=== PATIENT | female | born 1950 | race Caucasian/White ===

== ENCOUNTER 2024-10-13 16:03 | Emergency (ER) | payer MEDICARE, BC ==
[~2024-10-13] VITALS: Ht 154.9 cm; Wt 113.6 kg
[2024-10-13 16:55] LABS: BASOPHILS % (AUTO) 0.5 % (0-1); EOSINOPHILS # (AUTO) 0.2 X10'3 (0-0.9); EOSINOPHILS % (AUTO) 2.4 % (0-6); HEMATOCRIT 38.8 % (35.0-45.0); HEMOGLOBIN 12.6 g/dl (12.0-16.0); LYMPHOCYTES # (AUTO) 1.1 X10'3 (1.1-4.8); LYMPHOCYTES % (AUTO) 13.5 % (21-51); MEAN CORPUSCULAR HGB CONC 32.5 g/dL (33.0-36.5); MEAN CORPUSCULAR VOLUME 86.1 FL (78-98); MEAN PLATELET VOLUME 10.4 FL (7.4-10.4); MONOCYTES # (AUTO) 0.5 X10'3 (0-0.9); MONOCYTES % (AUTO) 5.8 % (2-12); NEUTROPHILS # (AUTO) 6.1 X10'3 (1.8-7.7); NEUTROPHILS % (AUTO) 77.8 % (42-75); PLATELET COUNT 225 X10'3 (140-440); RED BLOOD COUNT 4.51 X10'6 (4.20-5.60); RED CELL DISTRIBUTION WIDTH 15.5 % (11.5-14.5); WHITE BLOOD COUNT 7.8 X10'3 (4.5-11.0)
[2024-10-13 17:02] LABS: ALANINE AMINOTRANSFERASE 27 U/L (12-78); ALBUMIN/GLOBULIN RATIO 0.5 (1.1-1.5); ALKALINE PHOSPHATASE 183 IU/L (46-116); ANION GAP 4 (8-16); ASPARTATE AMINO TRANSFERASE 29 U/L (10-37); BILIRUBIN,TOTAL 0.5 MG/DL (0.1-1.0); BLOOD UREA NITROGEN 54 MG/DL (7-18); BUN/CREATININE RATIO 37.2 (10.0-20.0); CALCIUM 9.6 MG/DL (8.5-10.1); CHLORIDE 93 MMOL/L (99-107); CREATININE 1.45 MG/DL (0.40-0.90); GLUCOSE 244 MG/DL (70-104); POTASSIUM 3.9 MMOL/L (3.5-5.1); SODIUM 131 MMOL/L (135-145); TOTAL CARBON DIOXIDE 34.2 MMOL/L (24-32); TOTAL PROTEIN 8.8 G/DL (6.4-8.2); eCRCL 26 ML/MIN; eGFR 35 ML/MIN
[2024-10-13 17:27] LABS: BILIRUBIN,URINE NEGATIVE (Neg); CLARITY,URINE CLEAR (Clear); COLOR,URINE STRAW (Yellow); GLUCOSE, URINE >=1000 mg/dl (Neg); KETONES,URINE NEGATIVE (Neg); LEUKOCYTE ESTERASE ,URINE NEGATIVE (Neg); NITRITES, URINE NEGATIVE (Neg); OCCULT BLOOD,URINE SMALL (Neg); PROTEIN,URINE TRACE mg/dl (Neg); UROBILINOGEN,URINE 0.2 E.U/dL (0.2-1.0)
[2024-10-13 17:33] LABS: UA COLLECTION TYPE CLN CATCH MIDSTREAM
[2024-10-13 17:36] LABS: BACTERIA,URINE NONE SEEN /HPF (Neg); MUCUS STRANDS NONE SEEN /LPF (Neg); SQUAMOUS EPITHELIAL CELL,UR FEW /LPF (FEW); WBC,URINE 0-4 /HPF (0-4)
[2024-10-13] MEDS: TETanus/Pertussis (Acell)/Diphther VAC/PF (Tdap-Adult) 0.5ml syringe IMVAC ONE (19:19)
[2024-10-13] MEDS: tetanus & diphtheria toxoid (Td) vaccine 0.5ml IMVAC ONE (19:21)
[2024-10-13 19:25] VITALS: BP 135/84; PULSE 74; RESP 16; TEMP 97.7; O2SAT 95
== END 2024-10-13 19:26 | disposition home or self-care (01) ==
LOC: ER 16:03
DX: S41.111A Laceration without foreign body of right upper arm, initial encounter (principal); W19.XXXA Unspecified fall, initial encounter; Y93.89 Activity, other specified; Y92.89 Other specified places as the place of occurrence of the external cause; Y99.8 Other external cause status
CPT/HCPCS: 36415; 80053; 81001; 85025; 90715; 99283; G0008; 90471

== ENCOUNTER 2024-11-21 12:22 | Inpatient (IN) | payer MEDICARE, BC ==
[~2024-11-21] VITALS: Ht 154.9 cm; Wt 113.9 kg
[2024-11-21 12:47] LABS: BASOPHILS # (AUTO) 0.1 X10'3 (0-0.2); BASOPHILS % (AUTO) 0.7 % (0-1); EOSINOPHILS # (AUTO) 0.2 X10'3 (0-0.9); HEMATOCRIT 36.2 % (35.0-45.0); HEMOGLOBIN 11.8 g/dl (12.0-16.0); LYMPHOCYTES # (AUTO) 1.3 X10'3 (1.1-4.8); LYMPHOCYTES % (AUTO) 16.3 % (21-51); MEAN CORPUSCULAR HEMOGLOBIN 28.1 PG (27.0-31.0); MEAN CORPUSCULAR HGB CONC 32.6 g/dL (33.0-36.5); MEAN CORPUSCULAR VOLUME 86.1 FL (78-98); MEAN PLATELET VOLUME 9.7 FL (7.4-10.4); MONOCYTES # (AUTO) 0.6 X10'3 (0-0.9); MONOCYTES % (AUTO) 7.5 % (2-12); NEUTROPHILS # (AUTO) 5.8 X10'3 (1.8-7.7); NEUTROPHILS % (AUTO) 72.5 % (42-75); PLATELET COUNT 199 X10'3 (140-440); RED CELL DISTRIBUTION WIDTH 16.6 % (11.5-14.5); WHITE BLOOD COUNT 8.1 X10'3 (4.5-11.0)
[2024-11-21 13:03] LABS: ALANINE AMINOTRANSFERASE 40 U/L (12-78); ALBUMIN 2.6 G/DL (3.4-5.0); ALBUMIN/GLOBULIN RATIO 0.5 (1.1-1.5); ALKALINE PHOSPHATASE 200 IU/L (46-116); ANION GAP 3 (8-16); ASPARTATE AMINO TRANSFERASE 46 U/L (10-37); BILIRUBIN,TOTAL 0.5 MG/DL (0.1-1.0); BLOOD UREA NITROGEN 59 MG/DL (7-18); CALCIUM 8.9 MG/DL (8.5-10.1); CHLORIDE 95 MMOL/L (99-107); CREATININE 1.34 MG/DL (0.40-0.90); GLUCOSE 126 MG/DL (70-104); POTASSIUM 3.4 MMOL/L (3.5-5.1); SODIUM 135 MMOL/L (135-145); TOTAL CARBON DIOXIDE 36.8 MMOL/L (24-32); TOTAL PROTEIN 8.2 G/DL (6.4-8.2); eCRCL 28 ML/MIN; eGFR 39 ML/MIN
[2024-11-21 13:11] LABS: PRO BRAIN NATRIURETIC PEPTIDE 2067 PG/ML (0-125)
[2024-11-21 15:28] LABS: MAGNESIUM 1.7 MG/DL (1.5-2.4)
[2024-11-21] MEDS: CefTRIAXone/D5W-Rocephin 1gm 50 ML IV ONE (15:52)
[2024-11-21] MEDS ORDERED: potassium Cl 20 mEq SR tablet PO PRN (16:25)
[2024-11-21] MEDS ORDERED: morphine 2 MG/ML inj. syringe IV PRN (16:25)
[2024-11-21] MEDS ORDERED: potassium Cl 40MEQ/1/2NS 520ml 520 ML IV PRN (16:25)
[2024-11-21] MEDS ORDERED: magnesium Cl slow-release 64mg tablet PO PRN (16:25)
[2024-11-21] MEDS ORDERED: magnesium sulf-water 4G/100mL 100 ML IV PRN (16:25)
[2024-11-21] MEDS ORDERED: magnesium sulf-water 2g/50mL 50 ML IV PRN (16:25)
[2024-11-21] MEDS ORDERED: ondansetron/PF 4mg/2ml inj IV PRN (16:25)
[2024-11-21] MEDS ORDERED: acetaminophen 325mg tablet PO PRN ×2 (16:25)
[2024-11-21] MEDS ORDERED: dextrose 50%-water 50ml dispensing syringe IV PRN ×2 (16:30)
[2024-11-21] MEDS ORDERED: glucagon, human recombinant 1mg kit SUBCUT PRN (16:30)
[2024-11-21] MEDS ORDERED: DEXTROSE 15 GM of carb/4 tabs (each vial/BOTTLE has 4 tablets) PO PRN ×2 (16:30)
[2024-11-21] MEDS: doxycycline inj 100 MG in normal saline 100ml IV soln 100 ML IV SCH (17:45)
[2024-11-21] MEDS: normal saline 1000ml 1,000 ML IV SCH (17:45)
[2024-11-21] MEDS ORDERED: ROSU40TA PO (17:56)
[2024-11-21] MEDS ORDERED: METO5TAB7 PO (17:56)
[2024-11-21] MEDS ORDERED: METO-384 (17:56)
[2024-11-21] MEDS ORDERED: FURO40TA4 PO (17:56)
[2024-11-21] MEDS ORDERED: LEVO75TA7 PO (17:56)
[2024-11-21] MEDS ORDERED: DULO30CA52 PO (17:56)
[2024-11-21] MEDS ORDERED: ROPI1TAB47 PO (17:56)
[2024-11-21] MEDS ORDERED: RIVA15TA PO (17:56)
[2024-11-21] MEDS ORDERED: PANT40TA54 PO (17:56)
[2024-11-21] MEDS ORDERED: CLON1TAB2 PO (17:57)
[2024-11-21] MEDS ORDERED: DAPA5TAB PO (17:58)
[2024-11-21] MEDS: INSULIN LISPRO 100 UNIT/ML INSULN.PEN MULTI-DOSE SQ SCH (19:01)
[2024-11-21 19:12] LABS: THYROID STIMULATING HORMONE 3.48 ulU/ml (0.34-4.50)
[2024-11-21] MEDS ORDERED: heparin, porcine 5000 units/ml vial SQ SCH (20:00)
[2024-11-21] MEDS: duloxetine 30mg CAPSULE.DR PO SCH (20:24)
[2024-11-21] MEDS: atorvastatin 20mg tablet PO SCH (20:24)
[2024-11-21] MEDS: levoTHYROXINE 75mcg tablet PO SCH (20:24)
[2024-11-21] MEDS: pantoprazole 40mg Tablet.DR PO SCH (20:24)
[2024-11-21] MEDS: ROPINIRole 1mg tablet PO SCH (20:25)
[2024-11-21] MEDS: rivaroxaban 15mg tablet PO SCH (20:34)
[2024-11-21] MEDS: furosemide 40mg tablet PO SCH (20:34)
[2024-11-21] MEDS: metoprolol succinate 25mg (24-HOUR) SR. Tablet PO SCH (20:41)
[2024-11-21 22:00] VITALS: BP 149/32; PULSE 71; RESP 19; TEMP 97.6; O2SAT 95
[2024-11-22 05:28] LABS: BASOPHILS % (AUTO) 0.4 % (0-1); EOSINOPHILS # (AUTO) 0.3 X10'3 (0-0.9); EOSINOPHILS % (AUTO) 3.2 % (0-6); HEMOGLOBIN 10.8 g/dl (12.0-16.0); LYMPHOCYTES # (AUTO) 1.2 X10'3 (1.1-4.8); LYMPHOCYTES % (AUTO) 13.8 % (21-51); MEAN CORPUSCULAR HEMOGLOBIN 27.5 PG (27.0-31.0); MEAN CORPUSCULAR HGB CONC 31.8 g/dL (33.0-36.5); MEAN CORPUSCULAR VOLUME 86.5 FL (78-98); MEAN PLATELET VOLUME 10.3 FL (7.4-10.4); MONOCYTES # (AUTO) 0.8 X10'3 (0-0.9); MONOCYTES % (AUTO) 8.6 % (2-12); NEUTROPHILS # (AUTO) 6.5 X10'3 (1.8-7.7); PLATELET COUNT 185 X10'3 (140-440); RED BLOOD COUNT 3.93 X10'6 (4.20-5.60); RED CELL DISTRIBUTION WIDTH 16.5 % (11.5-14.5); WHITE BLOOD COUNT 8.8 X10'3 (4.5-11.0)
[2024-11-22 05:47] LABS: ALBUMIN 2.3 G/DL (3.4-5.0); BLOOD UREA NITROGEN 58 MG/DL (7-18); CALCIUM 8.8 MG/DL (8.5-10.1); CREATININE 1.38 MG/DL (0.40-0.90); GLUCOSE 160 MG/DL (70-104); SODIUM 135 MMOL/L (135-145); TOTAL CARBON DIOXIDE 35.1 MMOL/L (24-32); eCRCL 27 ML/MIN; eGFR 37 ML/MIN
[2024-11-22 06:08] LABS: ANION GAP 5 (8-16); CHLORIDE 95 MMOL/L (99-107); POTASSIUM 3.2 MMOL/L (3.5-5.1)
[2024-11-22 06:39] VITALS: BP 110/50; PULSE 68; RESP 16; TEMP 97.8; O2SAT 96
[2024-11-22 07:48] VITALS: RESP 16; O2SAT 96
[2024-11-22] MEDS: lactose-reduced food (Ensure Enlive) - 237ml bottle PO SCH (08:00)
[2024-11-22] MEDS: potassium Cl 20 mEq SR tablet PO PRN (09:30)
[2024-11-22] MEDS: normal saline 1000ml 1,000 ML IV SCH (09:31)
[2024-11-22 11:21] VITALS: BP 111/50; PULSE 69; RESP 18; TEMP 97; O2SAT 98
[2024-11-22 18:00] VITALS: BP 116/50; PULSE 65; RESP 17; TEMP 98.2; O2SAT 96
[2024-11-22 22:00] VITALS: BP 147/51; PULSE 69; RESP 15; TEMP 98; O2SAT 97
[2024-11-22 22:08] VITALS: RESP 17; O2SAT 96
[2024-11-23 05:16] LABS: BASOPHILS % (AUTO) 0.5 % (0-1); EOSINOPHILS # (AUTO) 0.3 X10'3 (0-0.9); EOSINOPHILS % (AUTO) 3.5 % (0-6); HEMATOCRIT 32.1 % (35.0-45.0); HEMOGLOBIN 10.5 g/dl (12.0-16.0); LYMPHOCYTES # (AUTO) 1.3 X10'3 (1.1-4.8); LYMPHOCYTES % (AUTO) 16.8 % (21-51); MEAN CORPUSCULAR HGB CONC 32.6 g/dL (33.0-36.5); MEAN CORPUSCULAR VOLUME 85.9 FL (78-98); MEAN PLATELET VOLUME 10.2 FL (7.4-10.4); MONOCYTES # (AUTO) 0.5 X10'3 (0-0.9); MONOCYTES % (AUTO) 6.9 % (2-12); NEUTROPHILS # (AUTO) 5.6 X10'3 (1.8-7.7); NEUTROPHILS % (AUTO) 72.3 % (42-75); PLATELET COUNT 177 X10'3 (140-440); RED BLOOD COUNT 3.74 X10'6 (4.20-5.60); RED CELL DISTRIBUTION WIDTH 16.9 % (11.5-14.5); WHITE BLOOD COUNT 7.8 X10'3 (4.5-11.0)
[2024-11-23 05:30] LABS: ALBUMIN 2.3 G/DL (3.4-5.0); ANION GAP 3 (8-16); BLOOD UREA NITROGEN 59 MG/DL (7-18); BUN/CREATININE RATIO 43.4 (10.0-20.0); CALCIUM 8.6 MG/DL (8.5-10.1); CHLORIDE 97 MMOL/L (99-107); CREATININE 1.36 MG/DL (0.40-0.90); GLUCOSE 176 MG/DL (70-104); POTASSIUM 3.5 MMOL/L (3.5-5.1); SODIUM 136 MMOL/L (135-145); TOTAL CARBON DIOXIDE 35.8 MMOL/L (24-32); eCRCL 27 ML/MIN; eGFR 38 ML/MIN
[2024-11-23 06:00] VITALS: BP 117/48; PULSE 71; RESP 17; TEMP 97.9; O2SAT 100
[2024-11-23] MEDS ORDERED: metolazone 2.5mg tablet PO SCH (08:00)
[2024-11-23 10:00] VITALS: BP 129/67; PULSE 65; RESP 16; TEMP 97.1; O2SAT 98
[2024-11-23] MEDS: duloxetine 30mg CAPSULE.DR PO SCH (10:02)
[2024-11-23 10:16] VITALS: RESP 16; O2SAT 100
[2024-11-23 18:00] VITALS: BP 149/54; PULSE 90; RESP 18; TEMP 97.2; O2SAT 95
[2024-11-23] MEDS: ROPINIRole 1mg tablet PO SCH (20:41)
[2024-11-23 22:00] VITALS: BP 145/47; PULSE 69; RESP 22; TEMP 97.8; O2SAT 97
[2024-11-24] MEDS: HYDROcodone/acetaminophen 5mg/325mg tablet PO PRN (03:19)
[2024-11-24 06:00] VITALS: BP 135/67; PULSE 68; RESP 18; TEMP 98.3; O2SAT 98
[2024-11-24 06:09] LABS: ALBUMIN 2.6 G/DL (3.4-5.0); ANION GAP 3 (8-16); BLOOD UREA NITROGEN 50 MG/DL (7-18); BUN/CREATININE RATIO 43.1 (10.0-20.0); CALCIUM 9.3 MG/DL (8.5-10.1); CHLORIDE 98 MMOL/L (99-107); CREATININE 1.16 MG/DL (0.40-0.90); GLUCOSE 229 MG/DL (70-104); POTASSIUM 4.2 MMOL/L (3.5-5.1); SODIUM 136 MMOL/L (135-145); TOTAL CARBON DIOXIDE 34.7 MMOL/L (24-32); eCRCL 32 ML/MIN; eGFR 46 ML/MIN
[2024-11-24 06:18] LABS: BASOPHILS # (AUTO) 0.1 X10'3 (0-0.2); BASOPHILS % (AUTO) 0.6 % (0-1); EOSINOPHILS # (AUTO) 0.2 X10'3 (0-0.9); EOSINOPHILS % (AUTO) 2.3 % (0-6); HEMATOCRIT 35.6 % (35.0-45.0); HEMOGLOBIN 11.5 g/dl (12.0-16.0); LYMPHOCYTES # (AUTO) 1.2 X10'3 (1.1-4.8); LYMPHOCYTES % (AUTO) 11.2 % (21-51); MEAN CORPUSCULAR HEMOGLOBIN 27.9 PG (27.0-31.0); MEAN CORPUSCULAR HGB CONC 32.3 g/dL (33.0-36.5); MEAN CORPUSCULAR VOLUME 86.5 FL (78-98); MEAN PLATELET VOLUME 10.5 FL (7.4-10.4); MONOCYTES # (AUTO) 0.6 X10'3 (0-0.9); MONOCYTES % (AUTO) 5.6 % (2-12); NEUTROPHILS # (AUTO) 8.4 X10'3 (1.8-7.7); NEUTROPHILS % (AUTO) 80.3 % (42-75); PLATELET COUNT 213 X10'3 (140-440); RED BLOOD COUNT 4.12 X10'6 (4.20-5.60); RED CELL DISTRIBUTION WIDTH 16.9 % (11.5-14.5); WHITE BLOOD COUNT 10.4 X10'3 (4.5-11.0)
[2024-11-24] MEDS ORDERED: AMOX-580 PO (07:56)
[2024-11-24 08:00] VITALS: RESP 20; O2SAT 95
[2024-11-24] MEDS: furosemide 40mg/4ml inj IV SCH (08:09)
[2024-11-24 10:00] VITALS: BP 119/56; PULSE 71; RESP 20; TEMP 98.1; O2SAT 95
[2024-11-24 12:22] VITALS: RESP 17
[2024-11-24 12:54] LABS: HEMOGLOBIN A1C 8.5 % (4.5-6.2)
[2024-11-24] MEDS ORDERED: FURO40TA4 PO (14:04)
== END 2024-11-24 16:39 | disposition home or self-care (01) | DRG 602 ==
LOC: ER 12:23 → ED HOLD 16:29 → SUR 3N 21:00
PROVIDERS: ADMIT Internal Medicine; ATTEND Internal Medicine
DX: L03.115 Cellulitis of right lower limb (principal); I50.33 Acute on chronic diastolic (congestive) heart failure; I13.0 Hypertensive heart and chronic kidney disease with heart failure and stage 1 through stage 4 chronic kidney disease, or unspecified chronic kidney disease; E87.3 Alkalosis; E44.0 Moderate protein-calorie malnutrition; Z68.42 Body mass index [BMI] 45.0-49.9, adult; L03.116 Cellulitis of left lower limb; I27.20 Pulmonary hypertension, unspecified; N18.9 Chronic kidney disease, unspecified; J44.9 Chronic obstructive pulmonary disease, unspecified; E11.22 Type 2 diabetes mellitus with diabetic chronic kidney disease; G89.29 Other chronic pain; M54.9 Dorsalgia, unspecified; K21.9 Gastro-esophageal reflux disease without esophagitis; Z66 Do not resuscitate; B96.89 Other specified bacterial agents as the cause of diseases classified elsewhere; F32.A Depression, unspecified; F41.9 Anxiety disorder, unspecified; D63.8 Anemia in other chronic diseases classified elsewhere; M16.0 Bilateral primary osteoarthritis of hip; M19.09 Primary osteoarthritis, other specified site; M17.0 Bilateral primary osteoarthritis of knee; Z79.899 Other long term (current) drug therapy; Z88.8 Allergy status to other drugs, medicaments and biological substances; Z95.0 Presence of cardiac pacemaker; Z95.2 Presence of prosthetic heart valve
CPT/HCPCS: 36415; 71045; 80048; 80053; 82948; 83036; 83605; 83735; 83880; 84145; 84443; 84484; 85025; 87040; 87077; 87081; 87186; 93005; 96365; 96367; 96372; 97161; 97530; 99285; A4615; G0378; J0696; J1815; J1940; J3490; J7030

== ENCOUNTER 2024-12-13 18:09 | Inpatient (IN) | payer MEDICARE, BC ==
[~2024-12-13] VITALS: Ht 165.1 cm; Wt 109.1 kg
[~2024-12-13 18:09] MED LIST: CLON1TAB2 PO; DAPA5TAB PO; DULO30CA52 PO; FURO40TA4 PO; LEVO75TA7 PO; METO-384 PO; METO5TAB7 PO; PANT40TA54 PO; RIVA15TA PO; ROPI1TAB47 PO; ROSU40TA PO
[2024-12-13 19:37] LABS: BASOPHILS # (AUTO) 0.1 X10'3 (0-0.2); BASOPHILS % (AUTO) 0.7 % (0-1); EOSINOPHILS # (AUTO) 0.1 X10'3 (0-0.9); EOSINOPHILS % (AUTO) 1.2 % (0-6); HEMATOCRIT 40.9 % (35.0-45.0); HEMOGLOBIN 13.5 g/dl (12.0-16.0); LYMPHOCYTES # (AUTO) 1.6 X10'3 (1.1-4.8); LYMPHOCYTES % (AUTO) 19.7 % (21-51); MEAN CORPUSCULAR HEMOGLOBIN 27.9 PG (27.0-31.0); MEAN CORPUSCULAR HGB CONC 33.1 g/dL (33.0-36.5); MEAN CORPUSCULAR VOLUME 84.3 FL (78-98); MEAN PLATELET VOLUME 10.6 FL (7.4-10.4); MONOCYTES # (AUTO) 0.6 X10'3 (0-0.9); MONOCYTES % (AUTO) 7.8 % (2-12); NEUTROPHILS # (AUTO) 5.9 X10'3 (1.8-7.7); NEUTROPHILS % (AUTO) 70.6 % (42-75); PLATELET COUNT 227 X10'3 (140-440); RED BLOOD COUNT 4.85 X10'6 (4.20-5.60); RED CELL DISTRIBUTION WIDTH 16.7 % (11.5-14.5); WHITE BLOOD COUNT 8.3 X10'3 (4.5-11.0)
[2024-12-13 20:00] LABS: ALANINE AMINOTRANSFERASE 78 U/L (12-78); ALBUMIN 2.9 G/DL (3.4-5.0); ALBUMIN/GLOBULIN RATIO 0.5 (1.1-1.5); ALKALINE PHOSPHATASE 213 IU/L (46-116); ANION GAP 3 (8-16); ASPARTATE AMINO TRANSFERASE 82 U/L (10-37); BILIRUBIN,TOTAL 0.7 MG/DL (0.1-1.0); BLOOD UREA NITROGEN 84 MG/DL (7-18); BUN/CREATININE RATIO 38.4 (10.0-20.0); CALCIUM 9.3 MG/DL (8.5-10.1); CHLORIDE 84 MMOL/L (99-107); CREATININE 2.19 MG/DL (0.40-0.90); GLUCOSE 349 MG/DL (70-104); MAGNESIUM 1.7 MG/DL (1.5-2.4); PRO BRAIN NATRIURETIC PEPTIDE 2173 PG/ML (0-125); SODIUM 127 MMOL/L (135-145); TOTAL CARBON DIOXIDE 39.7 MMOL/L (24-32); TOTAL PROTEIN 8.4 G/DL (6.4-8.2); eGFR 22 ML/MIN
[2024-12-13 20:27] LABS: POTASSIUM 2.3 MMOL/L (3.5-5.1)
[2024-12-13] MEDS: ipratropium/albuterol 3ml nebule NEB ONE (20:33)
[2024-12-13 20:35] LABS: BILIRUBIN,URINE NEGATIVE (Neg); CLARITY,URINE CLEAR (Clear); COLOR,URINE YELLOW (Yellow); GLUCOSE, URINE >=1000 mg/dl (Neg); KETONES,URINE NEGATIVE (Neg); LEUKOCYTE ESTERASE ,URINE NEGATIVE (Neg); NITRITES, URINE NEGATIVE (Neg); OCCULT BLOOD,URINE NEGATIVE (Neg); PROTEIN,URINE NEGATIVE (Neg); UROBILINOGEN,URINE 0.2 E.U/dL (0.2-1.0)
[2024-12-13] MEDS ORDERED: magnesium sulf-water 2g/50mL 50 ML IV PRN (20:35)
[2024-12-13] MEDS ORDERED: acetaminophen 325mg tablet PO PRN (20:35)
[2024-12-13] MEDS ORDERED: DEXTROSE 15 GM of carb/4 tabs (each vial/BOTTLE has 4 tablets) PO PRN ×2 (20:35)
[2024-12-13] MEDS ORDERED: mag hydrox/Alum hydrox/simeth 30ml oral suspension PO PRN (20:35)
[2024-12-13] MEDS ORDERED: ipratropium/albuterol 3ml nebule NEB PRN (20:35)
[2024-12-13] MEDS ORDERED: bisacodyl 10mg suppository rectal RC PRN (20:35)
[2024-12-13] MEDS ORDERED: magnesium Cl slow-release 64mg tablet PO PRN (20:35)
[2024-12-13] MEDS ORDERED: HYDROcodone/acetaminophen 5mg/325mg tablet PO PRN (20:35)
[2024-12-13] MEDS ORDERED: glucagon, human recombinant 1mg kit SUBCUT PRN (20:35)
[2024-12-13] MEDS ORDERED: magnesium hydroxide 30ml (MOM) UD suspension PO PRN (20:35)
[2024-12-13] MEDS ORDERED: magnesium sulf-water 4G/100mL 100 ML IV PRN (20:35)
[2024-12-13] MEDS ORDERED: HYDROmorphone inj. 0.5 MG/0.5 ML DISP.SYRIN IV PRN (20:35)
[2024-12-13] MEDS ORDERED: potassium Cl 40MEQ/1/2NS 520ml 520 ML IV PRN (20:35)
[2024-12-13] MEDS ORDERED: dextrose 50%-water 50ml dispensing syringe IV PRN ×2 (20:35)
[2024-12-13] MEDS ORDERED: ondansetron/PF 4mg/2ml inj IV PRN (20:35)
[2024-12-13] MEDS ORDERED: morphine 2 MG/ML inj. syringe IV PRN (20:35)
[2024-12-13] MEDS ORDERED: potassium Cl 20 mEq SR tablet PO PRN (20:35)
[2024-12-13 20:36] VITALS: PULSE 60; RESP 16; O2SAT 87
[2024-12-13 20:41] VITALS: PULSE 60; RESP 16; O2SAT 95
[2024-12-13 20:47] LABS: UA COLLECTION TYPE CLN CATCH MIDSTREAM
[2024-12-13 20:48] LABS: BACTERIA,URINE 1+ /HPF (Neg); RBC,URINE NONE SEEN /HPF (0-2); SQUAMOUS EPITHELIAL CELL,UR MANY /LPF (FEW); WBC,URINE 0-4 /HPF (0-4)
[2024-12-13] MEDS: potassium Cl 20 mEq SR tablet PO STA (20:53)
[2024-12-13] MEDS: magnesium sulf-water 2g/50mL 50 ML IV ONE (20:54)
[2024-12-13] MEDS: potassium Cl 40MEQ/1/2NS 520ml 520 ML IV SCH (20:56)
[2024-12-13 21:02] LABS: APTT 32 SECONDS (22-32); INR 1.4 INR; PROTHROMBIN TIME 13.5 SECONDS (9.0-12.0)
[2024-12-13] MEDS ORDERED: DULA3PEN SQ (21:32)
[2024-12-13] MEDS ORDERED: INSU200I4 SQ (21:34)
[2024-12-13 21:35] LABS: OSMOLALITY 324 MOSM/K (280-300)
[2024-12-13] MEDS: furosemide 10 MG/1 ML 10ml inj IV SCH (21:37)
[2024-12-13] MEDS ORDERED: CefTRIAXone 2gm/D5W 50ml BAG 50 ML IV SCH (21:50)
[2024-12-13 21:53] LABS: PRO BRAIN NATRIURETIC PEPTIDE 2067 PG/ML (0-125)
[2024-12-13] MEDS: acetaZOLAMIDE IV 500mg inj IV SCH (22:51)
[2024-12-13] MEDS: insulin glargine (Lantus) pen - multi-dose SQ SCH (23:24)
[2024-12-13] MEDS: INSULIN LISPRO 100 UNIT/ML INSULN.PEN MULTI-DOSE SQ SCH (23:27)
[2024-12-13 23:30] VITALS: BP 143/49; PULSE 62; RESP 12; TEMP 97.4; O2SAT 93
[2024-12-13 23:40] VITALS: RESP 12; O2SAT 93
[2024-12-14] VITALS (12 sets, daily range): BP systolic 93–126; BP diastolic 35–65; PULSE 60–80; RESP 16–21; TEMP 97.1–97.9; O2SAT 93–99
[2024-12-14] MEDS: CefTRIAXone 2gm/D5W 50ml BAG 50 ML IV SCH (02:09)
[2024-12-14] MEDS: normal saline 1000ml 1,000 ML IV SCH (02:09)
[2024-12-14] MEDS: normal saline 250ml IV soln 250 ML IV ONE (02:09)
[2024-12-14 06:57] LABS: BASOPHILS # (AUTO) 0.1 X10'3 (0-0.2); BASOPHILS % (AUTO) 0.7 % (0-1); EOSINOPHILS # (AUTO) 0.1 X10'3 (0-0.9); EOSINOPHILS % (AUTO) 1.8 % (0-6); HEMATOCRIT 38.2 % (35.0-45.0); HEMOGLOBIN 12.8 g/dl (12.0-16.0); LYMPHOCYTES # (AUTO) 1.8 X10'3 (1.1-4.8); MEAN CORPUSCULAR HEMOGLOBIN 28.1 PG (27.0-31.0); MEAN CORPUSCULAR HGB CONC 33.6 g/dL (33.0-36.5); MEAN CORPUSCULAR VOLUME 83.9 FL (78-98); MEAN PLATELET VOLUME 10.9 FL (7.4-10.4); MONOCYTES # (AUTO) 0.8 X10'3 (0-0.9); MONOCYTES % (AUTO) 9.4 % (2-12); NEUTROPHILS # (AUTO) 5.3 X10'3 (1.8-7.7); NEUTROPHILS % (AUTO) 66.1 % (42-75); PLATELET COUNT 185 X10'3 (140-440); RED BLOOD COUNT 4.56 X10'6 (4.20-5.60); RED CELL DISTRIBUTION WIDTH 16.8 % (11.5-14.5)
[2024-12-14 07:14] LABS: ALANINE AMINOTRANSFERASE 62 U/L (12-78); ALBUMIN 2.5 G/DL (3.4-5.0); ALBUMIN/GLOBULIN RATIO 0.5 (1.1-1.5); ALKALINE PHOSPHATASE 175 IU/L (46-116); ANION GAP 6 (8-16); BILIRUBIN,TOTAL 0.5 MG/DL (0.1-1.0); BLOOD UREA NITROGEN 79 MG/DL (7-18); BUN/CREATININE RATIO 43.2 (10.0-20.0); CHLORIDE 92 MMOL/L (99-107); CREATININE 1.83 MG/DL (0.40-0.90); GLUCOSE 98 MG/DL (70-104); MAGNESIUM 2.1 MG/DL (1.5-2.4); SODIUM 133 MMOL/L (135-145); TOTAL CARBON DIOXIDE 35.3 MMOL/L (24-32); TOTAL PROTEIN 7.6 G/DL (6.4-8.2); eCRCL 24 ML/MIN; eGFR 27 ML/MIN
[2024-12-14 07:17] LABS: ASPARTATE AMINO TRANSFERASE 93 U/L (10-37)
[2024-12-14] MEDS: docusate sod 100mg capsule PO SCH ×2 (07:27)
[2024-12-14] MEDS: K and/or MAG REPLACEMENT MC SCH (08:00)
[2024-12-14] MEDS: lactose-reduced food (Ensure Enlive) - 237ml bottle PO SCH ×2 (08:05→17:34)
[2024-12-14] MEDS: potassium Cl 20 mEq SR tablet PO PRN (09:08)
[2024-12-14] MEDS ORDERED: ROSU40TA PO (13:00)
[2024-12-14] MEDS: ROPINIRole 1mg tablet PO SCH (21:16)
[2024-12-14] MEDS: metoprolol succinate 25mg (24-HOUR) SR. Tablet PO SCH (21:20)
[2024-12-14] MEDS: duloxetine 30mg CAPSULE.DR PO SCH (21:21)
[2024-12-14] MEDS: INSULIN LISPRO 100 UNIT/ML INSULN.PEN MULTI-DOSE SQ SCH (21:23)
[2024-12-14] MEDS: INSULIN LISPRO 100 UNIT/ML INSULN.PEN MULTI-DOSE SQ ONE (22:44)
[2024-12-15 02:00] VITALS: BP 118/49; PULSE 75; RESP 17; TEMP 97.4; O2SAT 93
[2024-12-15] MEDS ORDERED: LORazepam 2 mg/ml vial IV ONE (03:55)
[2024-12-15] MEDS: diazepam inj 5 MG/ML inj. IV ONE (04:24)
[2024-12-15] MEDS ORDERED: levoTHYROXINE 75mcg tablet PO SCH (08:00)
[2024-12-15] MEDS ORDERED: rivaroxaban 15mg tablet PO SCH (08:00)
[2024-12-15] MEDS ORDERED: pantoprazole 40mg Tablet.DR PO SCH (08:00)
[2024-12-15] MEDS ORDERED: clonazePAM 1mg tablet PO SCH (08:00)
[2024-12-15] MEDS ORDERED: insulin Lispro (HumaLOG) vial - multi-dose SQ SCH (09:00)
[2024-12-17] MEDS ORDERED: metolazone 2.5mg tablet PO SCH (08:00)
== END 2024-12-15 07:38 | disposition left against medical advice (07) | DRG 682 ==
LOC: ER 18:09 → ED HOLD 20:44 → PCU 3S 23:35
PROVIDERS: ADMIT Internal Medicine; ATTEND Family Medicine
DX: N17.0 Acute kidney failure with tubular necrosis (principal); E43 Unspecified severe protein-calorie malnutrition; G93.41 Metabolic encephalopathy; I13.0 Hypertensive heart and chronic kidney disease with heart failure and stage 1 through stage 4 chronic kidney disease, or unspecified chronic kidney disease; E87.3 Alkalosis; Z68.41 Body mass index [BMI] 40.0-44.9, adult; E86.0 Dehydration; E11.65 Type 2 diabetes mellitus with hyperglycemia; Z20.822 Contact with and (suspected) exposure to COVID-19; I50.9 Heart failure, unspecified; N18.30 Chronic kidney disease, stage 3 unspecified; I27.20 Pulmonary hypertension, unspecified; J44.9 Chronic obstructive pulmonary disease, unspecified; M79.7 Fibromyalgia; K59.09 Other constipation; D63.8 Anemia in other chronic diseases classified elsewhere; K21.9 Gastro-esophageal reflux disease without esophagitis; Z66 Do not resuscitate; G31.84 Mild cognitive impairment of uncertain or unknown etiology; E87.6 Hypokalemia; Z53.21 Procedure and treatment not carried out due to patient leaving prior to being seen by health care provider; Z86.73 Personal history of transient ischemic attack (TIA), and cerebral infarction without residual deficits; Z79.4 Long term (current) use of insulin; Z79.899 Other long term (current) drug therapy; Z95.2 Presence of prosthetic heart valve
CPT/HCPCS: 36415; 71045; 74176; 80053; 81001; 82948; 83605; 83735; 83880; 83930; 84145; 84484; 85025; 85610; 85730; 87040; 87081; 93005; 93306; 94640; 94760; 96365; 96375; 97161; 97530; 99291; A4353; A6258; G0378; J0696; J1120; J1815; J1938; J3360; J3480; J7030; J7050